=== PATIENT | female | born 1965 | race Caucasian/White ===

== ENCOUNTER 2017-04-01 20:22 | Inpatient (IN) | payer OTHER ==
[~2017-04-01] VITALS: Ht 167.6 cm; Wt 100.2 kg
[~2017-04-01 20:22] MED LIST: LYRICA25 MG PO; NEXIUM40 MG PO; ZOFRAN ODT4 MG
[2017-04-01] MEDS ORDERED: ONDANSETRON HCL INJ 2 MG/ML VIAL IV STA ×2 (20:43→22:11)
[2017-04-01] MEDS ORDERED: SODIUM CHLORIDE 0.9% 1000ML 1,000 ML IV STA (22:11)
[2017-04-01] MEDS ORDERED: PANTOPRAZOLE 40 MG 10ML VIAL IV STA (22:11)
[2017-04-01 22:24] LABS: BILIRUBIN,URINE NEGATIVE (NEGATIVE); CLARITY,URINE CLOUDY (CLEAR); COLOR,URINE YELLOW (YELLOW); KETONES,URINE TRACE (NEGATIVE); LEUKOCYTE ESTERASE ,URINE NEGATIVE (NEGATIVE); NITRITE,URINE NEGATIVE (NEGATIVE); PROTEIN,URINE DIPSTICK NEGATIVE (NEGATIVE); URINE UROBILINOGEN 0.2 mg/dL (0.2 - 1)
[2017-04-01 22:24] LABS: BASOPHILS # (AUTO) 0.1 (0.0-0.1); BASOPHILS % 0.3 % (0.0-1.0); EOSINOPHILS # (AUTO) 0.1 (0.0-0.4); EOSINOPHILS % 0.6 % (0.0-6.0); LYMPHOCYTES # (AUTO) 1.5 (1.0-3.2); LYMPHOCYTES % 9.9 % (18.0-39.1); MEAN CORPUSCULAR HGB CONC 33.3 g/dL (31-35); MONOCYTES # (AUTO) 1.2 (0.2-0.8); NEUTROPHILS # (AUTO) 11.9 (2.1-6.9); NEUTROPHILS % 80.8 % (38.7-80.0); PLATELET COUNT 324 x10e3/uL (140-360); RED CELL DISTRIBUTION WIDTH 13.1 % (11.7-14.4)
[2017-04-01 22:27] LABS: INR 0.95; PROTHROMBIN TIME 13.1 seconds (11.9-14.5)
[2017-04-01 22:29] LABS: PARTIAL THROMBOPLASTIN TIME 34.9 seconds (23.8-35.5)
[2017-04-01] MEDS ORDERED: PROMETHAZINE 12.5MG/ NACL 0.9% 12.5 MG/50 ML BAG IV ONE (22:30)
[2017-04-01 22:37] LABS: ALANINE AMINOTRANSFERASE 77 IU/L (0-55); ALBUMIN 4.2 g/dL (3.5-5.0); ALBUMIN/GLOBULIN RATIO 1.2 (0.8-2.0); ALKALINE PHOSPHATASE 58 IU/L (40-150); ANION GAP 14.6 mmol/L (8-16); BLOOD UREA NITROGEN 11 mg/dL (7-26); BUN/CREATININE RATIO 13 (6-25); CALCIUM 9.7 mg/dL (8.4-10.2); CARBON DIOXIDE 25 mmol/L (22-29); CHLORIDE 105 mmol/L (98-107); CREATININE, SERUM 0.84 mg/dL (0.57-1.11); EST GLOMERULAR FILTRATION RATE > 60 ML/MIN (60-); GLUCOSE 109 mg/dL (74-118); POTASSIUM 3.6 mmol/L (3.5-5.1); SODIUM 141 mmol/L (136-145)
[2017-04-01 22:39] LABS: BACTERIA,URINE MANY /HPF; EPITHELIAL CELLS,URINE MODERATE /LPF; RBC,URINE 0-5 /HPF (0-5)
[2017-04-01 22:45] LABS: AMYLASE 52 U/L (25-125); CREATINE KINASE 47 IU/L (29-168); LIPASE 13 U/L (8-78); MAGNESIUM 2.1 MG/DL (1.3-2.1)
[2017-04-01 22:51] LABS: TROPONIN I < 0.001 ng/mL (0-0.300)
[2017-04-02] MEDS ORDERED: D5.45%NS/KCL 20MEQ 1,000 ML IV ONE (01:00)
[2017-04-02] MEDS ORDERED: PIPER-TAZ 3.375 GM 50 ML IV SCH (01:00)
[2017-04-02] MEDS ORDERED: METRONIDAZOLE 500MG/NS 100ML 100 ML IV SCH (01:00)
--- NOTE | 2017-04-02 01:04 | Diagnostic Imaging Report ---
EXAM: CT ABDOMEN/PELVIS W DATE: 04/01/2017 10:30 PM INDICATION: Abdominal pain, nausea, vomiting COMPARISON: None TECHNIQUE: The abdomen and pelvis were scanned using a multidetector helical scanner. Coronal and sagittal reformations were obtained. Routine protocol performed. IV Contrast: 100 ml Isovue 370 FINDINGS: LOWER THORAX: No consolidation. LIVER/BILIARY: Hepatic steatosis with too small to characterize segment IVb hypodensity. No ductal dilatation. GALLBLADDER: Surgically absent SPLEEN: Unremarkable PANCREAS: Unremarkable ADRENALS: No nodules KIDNEYS: Symmetric perfusion. Mild bilateral pelviectasis without ureterectasis. No hydronephrosis. GI TRACT: Clips are noted at the GE junction. Small hiatal hernia. Diverticulosis with focal inflammatory changes and thickening of the proximal sigmoid colon. Normal appendix. VESSELS: Unremarkable PERITONEUM/RETROPERITONEUM: Mild pelvic free fluid. LYMPH NODES: There is mild bilateral pelvic adenopathy. For example a left external iliac node measures 1.9 cm, right external iliac node measures 2.3 cm, right common iliac node measures 1.4 cm.. Bilateral pelvic sidewall nodes measure 1.3-1.7 cm short axis. REPRODUCTIVE ORGANS/BLADDER: Status post hysterectomy with fullness of the cervix (if partial) or vaginal cuff. SOFT TISSUES: Unremarkable BONES: Degenerative changes, primarily at L5-S1. IMPRESSION: 1. Acute uncomplicated sigmoid diverticulitis. 2. Bilateral pelvic adenopathy of uncertain etiology. Differential includes metastatic disease. 3. Nonspecific fullness of the vaginal cuff/cervix (if partial hysterectomy). Correlate with history and physical exam given pelvic adenopathy. Signed by: Dr Candy Mckeon MD on 04/02/2017 1:00 AM
[2017-04-02] MEDS ORDERED: GABAPENTIN800 MG PO (01:08)
[2017-04-02] MEDS ORDERED: HYDROMORPHONE 1MG/1ML INJ IV PRN (01:45)
[2017-04-02] MEDS ORDERED: SODIUM CHLORIDE 0.9% 50ML 50 ML ONE (05:19)
[2017-04-02] MEDS ORDERED: IOPAMIDOL 370 MG/ML 200 ML INFUS..BTL INJ ONE (05:19)
[2017-04-02] MEDS: PROMETHAZINE HCL (IM) 25 MG/ML VIAL IV PRN (06:02)
[2017-04-02] MEDS: METRONIDAZOLE 500MG/NS 100ML 100 ML IV SCH ×3 (07:30→18:30)
[2017-04-02] MEDS: PIPER-TAZ 3.375 GM 50 ML IV SCH ×3 (08:30→20:10)
[2017-04-02] MEDS: PANTOPRAZOLE 40 MG 10ML VIAL IV SCH ×2 (09:00→18:07)
[2017-04-02] MEDS: SODIUM CHLORIDE 0.9% 1000ML 1,000 ML IV SCH ×3 (10:52→20:05)
[2017-04-02] MEDS: ONDANSETRON HCL INJ 2 MG/ML VIAL IV PRN ×3 (11:39→21:29)
[2017-04-02] MEDS: HYDROMORPHONE 2MG/ML INJ IV PRN ×2 (18:11→23:30)
[2017-04-03] MEDS: METRONIDAZOLE 500MG/NS 100ML 100 ML IV SCH ×4 (00:19→18:29)
[2017-04-03] MEDS ORDERED: SODIUM CHLORIDE 0.9% 50ML 50 ML ONE ×5 (01:14→23:48)
[2017-04-03] MEDS: PIPER-TAZ 3.375 GM 50 ML IV SCH ×5 (01:14→17:45)
[2017-04-03] MEDS: PROMETHAZINE HCL (IM) 25 MG/ML VIAL IV PRN ×4 (01:14→20:00)
[2017-04-03] MEDS ORDERED: DIPHENHYDRAMINE HCL INJ 1 ML ONE (01:52)
[2017-04-03] MEDS: SODIUM CHLORIDE 0.9% 1000ML 1,000 ML IV SCH ×4 (01:57→23:45)
[2017-04-03] MEDS ORDERED: DIPHENHYDRAMINE HCL INJ 50 MG/ML VIAL IV STA (01:58)
[2017-04-03] MEDS: ONDANSETRON HCL INJ 2 MG/ML VIAL IV PRN ×4 (06:03→22:19)
[2017-04-03] MEDS ORDERED: SODIUM CHLORIDE 0.9% 500ML 500 ML ONE (06:04)
[2017-04-03 06:23] LABS: BASOPHILS % 0.5 % (0.0-1.0); EOSINOPHILS # (AUTO) 0.1 (0.0-0.4); EOSINOPHILS % 1.6 % (0.0-6.0); HEMATOCRIT 38.1 % (34.2-44.1); HEMOGLOBIN 12.3 g/dL (12.0-16.0); LYMPHOCYTES # (AUTO) 1.2 (1.0-3.2); LYMPHOCYTES % 14.5 % (18.0-39.1); MEAN CORPUSCULAR HEMOGLOBIN 29.6 pg (28-32); MEAN CORPUSCULAR HGB CONC 32.3 g/dL (31-35); MEAN CORPUSCULAR VOLUME 91.8 fL (81-99); MONOCYTES # (AUTO) 0.7 (0.2-0.8); MONOCYTES % 8.5 % (4.4-11.3); NEUTROPHILS # (AUTO) 6.2 (2.1-6.9); NEUTROPHILS % 74.7 % (38.7-80.0); PLATELET COUNT 223 x10e3/uL (140-360); RED BLOOD COUNT 4.15 x10e6/uL (3.6-5.1); RED CELL DISTRIBUTION WIDTH 12.9 % (11.7-14.4)
--- NOTE | 2017-04-03 06:28 | History and Physical ---
REASON FOR ADMISSION 1. Diverticulitis. 2. Pelvic lymphadenopathy. 3. Leukocytosis. HISTORY OF PRESENT ILLNESS: Patient is a lady with a history of dysautonomia, who presented with a 2-day complaint of worsening left lower quadrant abdominal pain where in the emergency room she was noticed to have a white count of 14,000, as well as CT scan showing diverticulitis with significant amount of pelvic lymphadenopathy. PAST MEDICAL HISTORY: Significant for dysautonomia. MEDICATIONS: See MAR. ALLERGIES: SEE MAR. SOCIAL: Nonsmoker and nondrinker. Lives at home with her . FAMILY HISTORY: Hypertension. PHYSICAL EXAMINATION VITALS: 98.6, pulse 82, blood pressure 146/78, sats 98% on room air. GENERAL: No apparent distress. Lying in bed comfortably. NECK: Supple. CARDIOVASCULAR: Regular rate and rhythm. LUNGS: Clear to auscultation bilaterally. ABDOMEN: Soft. She has some slight tenderness over the left lower quadrant area, but no peritoneal signs. EXTREMITIES: No clubbing or cyanosis. NEUROLOGICAL: Nonfocal. ASSESSMENT AND PLAN 1. Diverticulitis: Continue with antibiotics and consult gastroenterology. 2. Pelvic lymphadenopathy: Unsure of the etiology at this time. May be related to the gastroenterology issues at hand. 3. Leukocytosis: Continue to monitor. 4. Dysautonomia: Continue to monitor. 5. Abdominal pain: Continue with current pain control. Please see hospital chart for full details. Job#: [id number] [place]
[2017-04-03 06:37] LABS: ALANINE AMINOTRANSFERASE 47 IU/L (0-55); ALBUMIN 3.3 g/dL (3.5-5.0); ALBUMIN/GLOBULIN RATIO 1.2 (0.8-2.0); ALKALINE PHOSPHATASE 40 IU/L (40-150); ANION GAP 11.4 mmol/L (8-16); BLOOD UREA NITROGEN 10 mg/dL (7-26); BUN/CREATININE RATIO 12 (6-25); CALCIUM 8.4 mg/dL (8.4-10.2); CARBON DIOXIDE 24 mmol/L (22-29); CHLORIDE 107 mmol/L (98-107); CREATININE, SERUM 0.85 mg/dL (0.57-1.11); EST GLOMERULAR FILTRATION RATE > 60 ML/MIN (60-); GLUCOSE 87 mg/dL (74-118); POTASSIUM 3.4 mmol/L (3.5-5.1); SODIUM 139 mmol/L (136-145)
[2017-04-03] MEDS ORDERED: DICYCLOMINE HCL 20 MG TAB PO PRN (09:15)
--- NOTE | 2017-04-03 10:09 | Consultation ---
DATE OF CONSULTATION: GASTROENTEROLOGY CONSULTATION REFERRING PHYSICIAN: Dr. Rosa REASON FOR CONSULTATION: Diverticulitis and pelvic lymphadenopathy. HISTORY OF PRESENT ILLNESS: Ms. Meyers is a very pleasant 52-year-old woman with below history. She reports that she was feeling unwell for a little over a week. She had queasiness and also altered bowel habits. The bowels appeared to be somewhat softer than normal but not diarrhea. She had no fevers, chills or night sweats and has not had any weight loss. She reports her last colonoscopy was approximately 4 or 5 years ago at which time she did have diverticulosis as well as polyps. It was performed by Dr. Cruz. She has never had a bout of acute diverticulitis previously. Over the past week, she developed lower abdominal pain, which was worse on the left than on the right side. It is nonradiating, crampy and of moderate severity. It was associated with nausea and vomiting as well as leukocytosis. She denies recent antibiotic use as an outpatient. Her last well woman exam was also approximately 4 to 5 years ago. She believes she had a hysterectomy, leaving her ovaries in place but taking the entire cervix. PAST MEDICAL HISTORY: Dysautonomia, diverticulosis, colon polyps and anxiety. PAST SURGICAL HISTORY: On November 21, 2012, she had a diagnostic laparoscopy and laparoscopic repair of hiatal hernia with fundoplication. MEDICATION AND ALLERGIES: Reviewed. Please see MAR, medication reconciliation form. SOCIAL HISTORY: No alcohol that is significant. No tobacco. No illicit substance. FAMILY HISTORY: Negative for colonic malignancy. REVIEW OF SYSTEMS: A 12-system review is positive for that mentioned in HPI. Otherwise, unremarkable. PHYSICAL EXAMINATION GENERAL: Pleasant, alert, oriented, in no acute distress. HEENT: Pupils are equal, round and reactive to light. NECK: Supple. No lymphadenopathy. LUNGS: Clear. CARDIOVASCULAR: S1, S2. ABDOMEN: Soft. She is tender in the left lower quadrant more so than the suprapubic or right lower quadrant. There is no rebound, guarding or mass. EXTREMITIES: No clubbing, cyanosis or edema. PSYCH: Calm, cooperative. NEUROLOGIC: Nonfocal. HEM-ONC: No bruising or adenopathy. The electronic health record was reviewed for laboratory and radiologic studies as well as history. ASSESSMENT AND PLAN 1. Acute diverticulitis, sigmoid, uncomplicated. Agree with 14 days of antibiotics, Bentyl, clear liquid diet when no longer having nausea and vomiting. In the meantime, supportive care with IV fluids and Zofran. Will give her Bentyl. 2. Pelvic lymphadenopathy, unclear source. She will need a followup gynecologic exam as well as colonoscopy in roughly 4 weeks. Thank you very much for asking me to see Ms. Meyers. Any questions or concerns, please do not hesitate to contact me. Will follow with you. Job#: [id number]
[2017-04-03] MEDS: PROMETHAZINE 12.5MG/ NACL 0.9% 12.5 MG/50 ML BAG IV PRN (23:45)
[2017-04-04] VITALS (7 sets, daily range): BP systolic 96–129; BP diastolic 51–60
[2017-04-04] MEDS: METRONIDAZOLE 500MG/NS 100ML 100 ML IV SCH ×5 (06:00→23:51)
[2017-04-04] MEDS: PIPER-TAZ 3.375 GM 50 ML IV SCH ×4 (06:00→20:00)
[2017-04-04] MEDS: PANTOPRAZOLE 40 MG 10ML VIAL IV SCH (08:36)
[2017-04-04] MEDS: SODIUM CHLORIDE 0.9% 1000ML 1,000 ML IV SCH ×3 (09:31→23:53)
[2017-04-04] MEDS: ONDANSETRON HCL INJ 2 MG/ML VIAL IV PRN ×3 (12:40→20:49)
[2017-04-04] MEDS: PROMETHAZINE 12.5MG/ NACL 0.9% 12.5 MG/50 ML BAG IV PRN (22:32)
[2017-04-05] VITALS (10 sets, daily range): BP systolic 97–126; BP diastolic 52–63
[2017-04-05] MEDS: PIPER-TAZ 3.375 GM 50 ML IV SCH ×3 (02:00→20:19)
[2017-04-05] MEDS: METRONIDAZOLE 500MG/NS 100ML 100 ML IV SCH (05:44)
[2017-04-05] MEDS: PANTOPRAZOLE 40 MG 10ML VIAL IV SCH (08:44)
[2017-04-05] MEDS: GABAPENTIN 400 MG CAP PO SCH ×3 (08:44→20:19)
[2017-04-05] MEDS: KETOROLAC TROMETHAMINE 30 MG/ML VIAL IV PRN ×2 (08:44→16:53)
[2017-04-05] MEDS ORDERED: NON-FORMULARY MEDICATION (Gabapentin 800 MG) PO SCH (09:00)
[2017-04-05] MEDS: SODIUM CHLORIDE 0.9% 1000ML 1,000 ML IV SCH ×2 (09:57→20:19)
[2017-04-06] VITALS: BP 105/57
[2017-04-06] MEDS: PIPER-TAZ 3.375 GM 50 ML IV SCH ×3 (02:39→21:00)
[2017-04-06 04:00] VITALS: BP 103/53
[2017-04-06] MEDS: SODIUM CHLORIDE 0.9% 1000ML 1,000 ML IV SCH ×3 (06:05→14:39)
[2017-04-06] MEDS: KETOROLAC TROMETHAMINE 30 MG/ML VIAL IV PRN (06:06)
[2017-04-06] MEDS: PANTOPRAZOLE 40 MG 10ML VIAL IV SCH (08:14)
[2017-04-06] MEDS: GABAPENTIN 400 MG CAP PO SCH ×3 (08:14→21:00)
[2017-04-06 08:34] VITALS: BP 124/59
[2017-04-06 10:15] VITALS: BP 124/59
[2017-04-06 16:00] VITALS: BP 110/53
[2017-04-06 20:00] VITALS: BP 103/53
[2017-04-07] VITALS: BP 136/65
[2017-04-07] MEDS: SODIUM CHLORIDE 0.9% 1000ML 1,000 ML IV SCH ×2 (00:21→08:46)
[2017-04-07] MEDS: PIPER-TAZ 3.375 GM 50 ML IV SCH ×2 (02:52→14:01)
[2017-04-07 04:00] VITALS: BP 106/52
[2017-04-07 08:06] VITALS: BP 114/57
[2017-04-07] MEDS: GABAPENTIN 400 MG CAP PO SCH ×2 (08:45→14:01)
[2017-04-07] MEDS: PANTOPRAZOLE 40 MG 10ML VIAL IV SCH (08:45)
[2017-04-07] MEDS ORDERED: LEVAQUIN500 MG PO (09:17)
[2017-04-07] MEDS ORDERED: FLAGYL500 MG PO (09:19)
[2017-04-07 09:34] VITALS: BP 114/57
[2017-04-07] MEDS ORDERED: ZOFRAN ODT4 MG PO (09:56)
[2017-04-07] MEDS ORDERED: ALINIA500 MG PO (09:57)
[2017-04-07 13:41] VITALS: BP 110/56
== END 2017-04-07 15:45 | disposition home or self-care (01) | DRG 392 ==
LOC: ER 20:22 → ERHOLD 04-02 02:18 → MED/SURG 04-03 22:25
PROVIDERS: ADMIT Internal Medicine; ATTEND Internal Medicine
DX: K57.92 Diverticulitis of intestine, part unspecified, without perforation or abscess without bleeding (principal); E86.0 Dehydration; G90.1 Familial dysautonomia [Riley-Day]; R59.1 Generalized enlarged lymph nodes
CPT/HCPCS: 36415; 74177; 80053; 81001; 82150; 82550; 82553; 83690; 83735; 84484; 85025; 85610; 85730; 96360; 96365; 96367; 96375; 96376; 99284; J1200; J1885; J2405; J2543; J2550; J7030; J7040; Q9967

== ENCOUNTER 2017-08-03 08:49 | Emergency (ER) | payer OTHER ==
[~2017-08-03] VITALS: Ht 167.6 cm; Wt 95.3 kg
[~2017-08-03 08:49] MED LIST changes: +ALINIA500 MG PO; +FLAGYL500 MG PO; +GABAPENTIN800 MG PO; +LEVAQUIN500 MG PO; +ZOFRAN ODT4 MG PO
--- OUTSIDE RECORDS SUMMARY | 2017-08-03 08:52 | XMS REPORT ---
Author Author [facility] Address Unknown Phone Unavailable Care Team Providers Care Plate Worker Name Role Phone MADDIE BUSH Unavailable Unavailable Problems This patient has no known problems. Allergies, Adverse Reactions, Alerts This patient has no known allergies or adverse reactions. Medications This patient has no known medications. Results Test Description Test Time Test Comments Text Results Atomic Results Result Comments CT ABDOMEN/PELVIS W [place] [address] Patient Name: SHEILA OLIVERA MR #: [id number] : 1965 Age/Sex: 52/F Req #: [id number] Adm Physician: Ordered by: MADDIE BUSH MD Report #: [id number] Location: ER Room/Bed: Procedure: [id number] CT/CT ABDOMEN/PELVIS W Exam Date: 04/01/17 Exam Time: 2348 REPORT STATUS: Signed EXAM: CT ABDOMEN/ PELVIS W DATE: 04/01/2017 10:30 PM INDICATION: Abdominal pain, nausea, vomiting COMPARISON: None TECHNIQUE: The abdomen and pelvis were scanned using a multidetector helical scanner. Coronal and sagittal reformations were obtained. Routine protocol performed. IV Contrast: 100 ml Isovue 370 FINDINGS: LOWER THORAX: No consolidation. LIVER/BILIARY: Hepatic steatosis with too small to characterize segment IVb hypodensity. No ductal dilatation. GALLBLADDER: Surgically absent SPLEEN: Unremarkable PANCREAS: Unremarkable ADRENALS: No nodules KIDNEYS: Symmetric perfusion. Mild bilateral pelviectasis without ureterectasis. No hydronephrosis. GI TRACT: Clips are noted at the GE junction. Small hiatal hernia. Diverticulosis with focal inflammatory changes and thickening of the proximal sigmoid colon. Normal appendix. VESSELS: Unremarkable PERITONEUM/RETROPERITONEUM: Mild pelvic free fluid. LYMPH NODES: There is mild bilateral pelvic adenopathy. For example a left external iliac node measures 1.9 cm, right external iliac node measures 2.3 cm, right common iliac node measures 1.4 cm.. Bilateral pelvic sidewall nodes measure 1.3-1.7 cm short axis. REPRODUCTIVE ORGANS/BLADDER: Status post hysterectomy with fullness of the cervix (if partial) or vaginal cuff. SOFT TISSUES: Unremarkable BONES: Degenerative changes, primarily at L5-S1. IMPRESSION : 1. Acute uncomplicated sigmoid diverticulitis. 2. Bilateral pelvic adenopathy of uncertain etiology. Differential includes metastatic disease. 3. Nonspecific fullness of the vaginal cuff/cervix (if partial hysterectomy). Correlate with history and physical exam given pelvic adenopathy. Signed by: Dr Kobi Mckeon MD on 04/02/2017 1:00 AM Dictated By: KOBI MCKEON MD Transcribed By: OVIDIO on 04/02/1799 COPY TO: MADDIE BUSH MD
--- OUTSIDE RECORDS SUMMARY | 2017-08-03 08:52 | XMS REPORT | Continuity of Care Document ---
Author Author [facility] Organization [facility] Address [address] [place] [address] Phone Unavailable Care Team Providers Care Master Dyer Name Role Phone DEEPA ARMAS MD PCP Insurance Providers Guarantor Mecca Meyers Address [address] [place] [address] Email [email or web address] Payer [facility] Policy Number [id number] Subscriber's Name Mecca Meyers Relationship 18 Self / Same As Patient Group Number [id number] Group Name [employer] Effective Date 12 Advance Directives Directive Response Recorded Date/Time Does the patient have an advance directive? No 04/04/17 12:21am If yes, is advance directive on file with [facility]? No 11/21/12 3:12pm If not on file with [facility] will patient provide a copy? No 11/21/12 3:12pm Do you have a Directive to Physician? No 04/01/17 10:08pm Do you have a Medical Power of Editor [employer]? No 04/01/17 10:08pm Do you have an out of hospital Do Not Resuscitate Order? No 04/01/17 10:08pm Do you have any special needs we should be aware of? No 04/01/17 10:08pm Do you have a support person here with you today? Yes 04/01/17 10:08pm Did patient receive Notice of Privacy Practices? Yes 04/01/17 10:08pm Did patient receive patient rights and responsibilities? Yes 04/01/17 10:08pm Problems Medical Problem Onset Date Status Dehydration Unknown Diverticulitis Unknown Pelvic lymphadenopathy Unknown Vomiting and diarrhea Unknown Medications Current Home Medications Medication Dose Units Route Directions Days Qty Instructions Start Date Gabapentin 800 Mg Tablet 800 Mg Oral Three Times A Day Levofloxacin (Levaquin) 500 Mg Tablet 500 Mg Oral Daily 7 Days Metronidazole (Flagyl) 500 Mg Tablet 500 Mg Oral Twice A Day 7 Days Nitazoxanide (Alinia) 500 Mg Tablet 500 Mg Oral Every 12 Hours 7 Days Ondansetron (Zofran Odt) 4 Mg Tab.rapdis 4 Mg Oral Every 6 Hours as needed for Nausea And Vomiting Past Home Medications Medication Directions Ordered Status Esomeprazole Magnesium (Nexium) 40 Mg Capsule.dr, 40 Mg Oral Twice A Day Discontinued Social History Social History Problem Response Recorded Date/Time Onset Date Status Hx Psychiatric Problems No 04/04/2017 12:21am Not Applicable Not Applicable Hx Eating Disorder No 04/04/2017 12:21am Not Applicable Not Applicable Hx Substance Use Disorder No 04/04/2017 12:21am Not Applicable Not Applicable Hx Depression No 04/04/2017 12:21am Not Applicable Not Applicable Hx Alcohol Use No 04/04/2017 12:21am Not Applicable Not Applicable Hx Substance Use Treatment No 04/04/2017 12:21am Not Applicable Not Applicable Hx Physical Abuse No 04/04/2017 12:21am Not Applicable Not Applicable Smoking Status Start Date Stop Date Never Smoker Hospital Discharge Instructions No hospital discharge instruction information available. Plan of Care Discharge Date 04/07/17 3:45pm Disposition HOME, SELF-CARE Instructions/Education Provided Diverticulitis Prescriptions See Medication Section Additional Instructions/Education GI SOFT DIET ACTIVITY TOLERATED SCHEDULE FOLLOW UP WITH DARIEL FINN OUTPATIENT IN 1-2 WEEKS. TEL: PRESCRIPTIONS ATTACHED. IF YOU CAN GET THE ILINEA, DO NOT TAKE THE FLAGYL. IF UPON TAKING THE FLAGYL AND YOU HAVE NAUSEA/VOMITING, YOU CAN STOP AND TAKE ONLY THE LEVAQUID. SCHEDULE FOLLOW UP APPOINTMENT WITH DR. WEEMS. TEL: [phone] Functional Status Query Response Date Recorded Assistive Devices None April 04, 2017 12:35am Ambulation Ability Independent April 04, 2017 12:35am Toileting Ability Independent April 04, 2017 6:22pm Allergies, Adverse Reactions, Alerts Allergen Type Severity Reaction Status Last Updated venlafaxine HCl Allergy Mild HIVES, SWELLING Active 11/16/12 Latex Allergy Mild SWELLING, REDNESS Active 11/16/12 Immunizations No immunization information available. Vital Signs Acute Vital Signs Vital Response Date/Time Temperature (Fahrenheit) 96.9 degrees F (97.6 - 99.5) 04/07/2017 1:41pm Pulse Pulse Rate (adult) 59 bpm (60 - 90) 04/07/2017 1:41pm Respiratory Rate 18 bpm (12 - 24) 04/07/2017 1:41pm Blood Pressure 110/56 mm Hg 04/07/2017 1:41pm Height 5 ft 6 in 04/01/2017 8:36pm Weight 221 lb 04/04/2017 12:21am Body Mass Index 35.7 kg/m^2 04/04/2017 12:21am Results Laboratory Results Test Name Result Units Flags Reference Collection Date/Time Result Date/ Time Comments White Blood Count 8.33 x10e3/uL 4.8-10.8 04/03/2017 5:50am 04/03/2017 6 :30am Red Blood Count 4.15 x10e6/uL 3.6-5.1 04/03/2017 5:50am 04/03/2017 6: 30am Hemoglobin 12.3 g/dL 12.0-16.0 04/03/2017 5:50am 04/03/2017 6:30am Hematocrit 38.1 % 34.2-44.1 04/03/2017 5:50am 04/03/2017 6:30am Mean Corpuscular Volume 91.8 fL 81-99 04/03/2017 5:50am 04/03/2017 6: 30am Mean Corpuscular Hemoglobin 29.6 pg 28-32 04/03/2017 5:50am 04/03/2017 6:30am Mean Corpuscular Hemoglobin Concent 32.3 g/dL 31-35 04/03/2017 5:50am 04/03/2017 6:30am Red Cell Distribution Width 12.9 % 11.7-14.4 04/03/2017 5:50am 2017 6:30am Platelet Count 223 x10e3/uL 140-360 04/03/2017 5:50am 04/03/2017 6: 30am Neutrophils (%) (Auto) 74.7 % 38.7-80.0 04/03/2017 5:50am 04/03/2017 6: 30am Lymphocytes (%) (Auto) 14.5 % L 18.0-39.1 04/03/2017 5:50am 04/03/2017 6 :30am Monocytes (%) (Auto) 8.5 % 4.4-11.3 04/03/2017 5:50am 04/03/2017 6: 30am Eosinophils (%) (Auto) 1.6 % 0.0-6.0 04/03/2017 5:50am 04/03/2017 6: 30am Basophils (%) (Auto) 0.5 % 0.0-1.0 04/03/2017 5:50am 04/03/2017 6:30am IM GRANULOCYTES % 0.2 % 0.0-1.0 04/03/2017 5:50am 04/03/2017 6:30am Neutrophils # (Auto) 6.2 2.1-6.9 04/03/2017 5:50am 04/03/2017 6:30am Lymphocytes # (Auto) 1.2 1.0-3.2 04/03/2017 5:50am 04/03/2017 6:30am Monocytes # (Auto) 0.7 0.2-0.8 04/03/2017 5:50am 04/03/2017 6:30am Eosinophils # (Auto) 0.1 0.0-0.4 04/03/2017 5:50am 04/03/2017 6:30am Basophils # (Auto) 0.0 0.0-0.1 04/03/2017 5:50am 04/03/2017 6:30am Absolute Immature Granulocyte (auto 0.02 x10e3/uL 0-0.1 04/03/2017 5: 50am 04/03/2017 6:30am Prothrombin Time 13.1 seconds 11.9-14.5 04/01/2017 8:44pm 04/01/2017 10 :32pm Prothromb Time International Ratio 0.95 04/01/2017 8:44pm 2017 10:32pm Oral Anticoagulant Therapy INR Values: 1. Low Intensity Therapy 1.5 - 2.0 2. Moderate Intensity Therapy 2.0 - 3.0 3. High Intensity Therapy(1) 2.5 - 3.5 4. High Intensity Therapy(2) 3.0 - 4.0 5. Panic Value INR > 5.0 Activated Partial Thromboplast Time 34.9 seconds 23.8-35.5 04/01/2017 8: 44pm 04/01/2017 10:32pm Urine Color YELLOW YELLOW 04/01/2017 10:04/01/2017 10:32pm Urine Clarity CLOUDY H CLEAR 04/01/2017 10:04/01/2017 10:32pm Urine Specific [place] 1.015 1.010-1.025 04/01/2017 10:2017 10:32pm Urine pH 7 5 - 7 04/01/2017 10:04/01/2017 10:32pm Urine Leukocyte Esterase NEGATIVE NEGATIVE 04/01/2017 10:2017 10:32pm Urine Nitrite NEGATIVE NEGATIVE 04/01/2017 10:04/01/2017 10: 32pm Urine Protein NEGATIVE NEGATIVE 04/01/2017 10:04/01/2017 10: 32pm Urine Glucose (UA) NEGATIVE NEGATIVE 04/01/2017 10:04/01/2017 10 :32pm Urine Ketones TRACE H NEGATIVE 04/01/2017 10:04/01/2017 10:32pm Urine Urobilinogen 0.2 mg/dL 0.2 - 1 04/01/2017 10:04/01/2017 10: 32pm Urine Bilirubin NEGATIVE NEGATIVE 04/01/2017 10:04/01/2017 10: 32pm Urine Blood NEGATIVE NEGATIVE 04/01/2017 10:04/01/2017 10:32pm Urine WBC 6-10 /HPF H 0-5 04/01/2017 10:1704/01/2017 10:39pm Urine RBC 0-5 /HPF 0-5 04/01/2017 10:17pm 04/01/2017 10:39pm Urine Bacteria MANY /HPF H NONE 04/01/2017 10:17pm 04/01/2017 10:39pm Urine Epithelial Cells MODERATE /LPF NONE 04/01/2017 10:17pm 2017 10:39pm Sodium Level 139 mmol/L 136-145 04/03/2017 5:50am 04/03/2017 6:40am Potassium Level 3.4 mmol/L L 3.5-5.1 04/03/2017 5:50am 04/03/2017 6: 40am Chloride Level 107 mmol/L 98-107 04/03/2017 5:50am 04/03/2017 6:40am Carbon Dioxide Level 24 mmol/L -04/03/2017 5:50am 04/03/2017 6: 40am Anion Gap 11.4 mmol/L 8-04/03/2017 5:50am 04/03/2017 6:40am Blood Urea Nitrogen 10 mg/dL -04/03/2017 5:50am 04/03/2017 6:40am Creatinine 0.85 mg/dL 0.57-1.11 04/03/2017 5:50am 04/03/2017 6:40am BUN/Creatinine Ratio 12 08-2804/03/2017 5:50am 04/03/2017 6:40am Estimat Glomerular Filtration Rate > 60 ML/MIN 6004/03/2017 5:50am 6:40am Ranges were taken from the National Kidney Disease Education Program and the National Kid[employer] Foundation literature. Reference ranges: 60 or greater: Normal 16-59 (for 3 consecutive months): Chronic kidney disease 15 or less: Kidney failure Glucose Level 87 mg/dL 74-118 04/03/2017 5:50am 04/03/2017 6:40am Calcium Level 8.4 mg/dL 8.4-10.2 04/03/2017 5:50am 04/03/2017 6:40am Magnesium Level 2.1 MG/DL 1.3-2.1 04/01/2017 8:44pm 04/01/2017 10:50pm Total Bilirubin 0.6 mg/dL 0.2-1.2 04/03/2017 5:50am 04/03/2017 6:40am Aspartate Amino Transf (AST/SGOT) 22 IU/L 5-34 04/03/2017 5:50am 2017 6:40am Alanine Aminotransferase (ALT/SGPT) 47 IU/L 0-55 04/03/2017 5:50am 6:40am Total Protein 6.0 g/dL # L 6.5-8.1 04/03/2017 5:50am 04/03/2017 6:40am Albumin 3.3 g/dL # L 3.5-5.0 04/03/2017 5:50am 04/03/2017 6:40am Globulin 2.7 g/dL 2.3-3.5 04/03/2017 5:50am 04/03/2017 6:40am Albumin/Globulin Ratio 1.2 0.8-2.0 04/03/2017 5:50am 04/03/2017 6: 40am Alkaline Phosphatase 40 IU/L 40-150 04/03/2017 5:50am 04/03/2017 6: 40am Creatine Kinase 47 IU/L 29-168 04/01/2017 8:44pm 04/01/2017 10:50pm Creatine Kinase MB 0.60 ng/mL 0.00-5.00 04/01/2017 8:44pm 04/01/2017 11 :01pm Troponin I < 0.001 ng/mL 0-0.300 04/01/2017 8:44pm 04/01/2017 11:01pm Amylase Level 52 U/L 25-125 04/01/2017 8:44pm 04/01/2017 10:50pm Lipase 13 U/L 8-78 04/01/2017 8:44pm 04/01/2017 10:50pm Procedures Procedure Status Date Provider(s) Computed tomography of abdomen and pelvis with contrast Active 04/01/17 MADDIE BUSH MD Encounters Encounter Location Arrival/Admit Date Discharge/Depart Date Attending Provider Discharged Inpatient [facility] 04/02/17 2:18am 04/07/17 3:45pm DEEPA ARMAS MD
[2017-08-03] MEDS ORDERED: MACROBID 100 M100 MG PO (09:07)
[2017-08-03] MEDS ORDERED: PANTOPRAZOLE SO40 MG PO (09:07)
[2017-08-03] MEDS ORDERED: ATENOLOL50 MG PO (09:07)
[2017-08-03] MEDS ORDERED: KETOROLAC TROMETHAMINE 30 MG/ML VIAL IV STA (09:16)
[2017-08-03 09:29] LABS: BASOPHILS % 0.4 % (0.0-1.0); EOSINOPHILS # (AUTO) 0.2 (0.0-0.4); EOSINOPHILS % 2.8 % (0.0-6.0); HEMATOCRIT 40.3 % (34.2-44.1); HEMOGLOBIN 13.7 g/dL (12.0-16.0); LYMPHOCYTES # (AUTO) 1.7 (1.0-3.2); LYMPHOCYTES % 21.1 % (18.0-39.1); MEAN CORPUSCULAR HEMOGLOBIN 30.1 pg (28-32); MEAN CORPUSCULAR VOLUME 88.6 fL (81-99); MONOCYTES # (AUTO) 0.5 (0.2-0.8); MONOCYTES % 6.5 % (4.4-11.3); NEUTROPHILS # (AUTO) 5.6 (2.1-6.9); PLATELET COUNT 289 x10e3/uL (140-360); RED BLOOD COUNT 4.55 x10e6/uL (3.6-5.1); RED CELL DISTRIBUTION WIDTH 12.8 % (11.7-14.4)
[2017-08-03] MEDS ORDERED: METOCLOPRAMIDE HCL 10 MG/2ML VIAL IV ONE (09:30)
[2017-08-03] MEDS ORDERED: SODIUM CHLORIDE 0.9% 1000ML 1,000 ML IV ONE (09:30)
[2017-08-03 09:40] LABS: ALANINE AMINOTRANSFERASE 57 IU/L (0-55); ALBUMIN/GLOBULIN RATIO 1.4 (0.8-2.0); ALKALINE PHOSPHATASE 60 IU/L (40-150); ANION GAP 11.6 mmol/L (8-16); BLOOD UREA NITROGEN 15 mg/dL (7-26); BUN/CREATININE RATIO 19 (6-25); CARBON DIOXIDE 26 mmol/L (22-29); CHLORIDE 107 mmol/L (98-107); CREATININE, SERUM 0.79 mg/dL (0.57-1.11); EST GLOMERULAR FILTRATION RATE > 60 ML/MIN (60-); GLUCOSE 116 mg/dL (74-118); POTASSIUM 3.6 mmol/L (3.5-5.1); SODIUM 141 mmol/L (136-145)
[2017-08-03 10:09] LABS: BILIRUBIN,URINE NEGATIVE (NEGATIVE); CLARITY,URINE CLEAR (CLEAR); COLOR,URINE YELLOW (YELLOW); KETONES,URINE NEGATIVE (NEGATIVE); NITRITE,URINE NEGATIVE (NEGATIVE); PROTEIN,URINE DIPSTICK NEGATIVE (NEGATIVE); URINE UROBILINOGEN 0.2 mg/dL (0.2 - 1)
[2017-08-03 10:10] LABS: LEUKOCYTE ESTERASE ,URINE TRACE (NEGATIVE)
[2017-08-03 10:19] LABS: BACTERIA,URINE RARE /HPF; EPITHELIAL CELLS,URINE MODERATE /LPF; WBC,URINE (MAN) 0-5 /HPF (0-5)
--- NOTE | 2017-08-03 11:22 | Diagnostic Imaging Report ---
Examination: CT BRAIN WITHOUT CONTRAST History:Headache. Left sided face pain radiating to the right; nausea. Comparison studies:None Technique: Axial images were obtained from the skull base to the vertex. Coronal and sagittal images reconstructed from the axial data. Intravenous contrast: None Findings: Scalp: No abnormalities. Bones: No fractures, blastic or lytic lesions. Brain sulci: Appropriate for age. Ventricles: Normal in size and configuration. No hydrocephalus. Extra-axial space: No abnormalities. Parenchyma: No masses, hemorrhage, or acute or chronic cortical based vascular insults. Sellar/suprasellar region: No abnormalities. Craniocervical junction: Patent foramen magnum. No Chiari one malformation. Incidental findings: None. Impression: No intracranial abnormalities. Signed by: Dr. Opal Mccartney M.D. on 08/03/2017 11:18 AM
[2017-08-03] MEDS ORDERED: METHYLPREDNISOLONE SOD SUCC 125 MG/2ML VIAL IV SCH (13:00)
== END 2017-08-03 13:36 | disposition home or self-care (01) ==
LOC: ER 08:49
DX: G43.109 Migraine with aura, not intractable, without status migrainosus (principal); I10 Essential (primary) hypertension; M79.7 Fibromyalgia; K21.9 Gastro-esophageal reflux disease without esophagitis; F41.9 Anxiety disorder, unspecified
CPT/HCPCS: 36415; 70450; 80053; 81001; 85025; 96374; 96375; 99284; J1885; J2765; J2930; J7030

== ENCOUNTER 2017-08-07 22:01 | Emergency (ER) | payer OTHER ==
[~2017-08-07] VITALS: Ht 167.6 cm; Wt 96.6 kg
[~2017-08-07 22:01] MED LIST changes: +ATENOLOL50 MG PO; +MACROBID 100 M100 MG PO; +PANTOPRAZOLE SO40 MG PO
--- OUTSIDE RECORDS SUMMARY | 2017-08-07 22:04 | XMS REPORT | Continuity of Care Document ---
Author Author [facility] Organization [facility] Address [address] [place] [address] Phone Unavailable Care Team Providers Care Vocational Training Teacher Name Role Phone DEEPA ARMAS MD PCP Insurance Providers Guarantor Mecca Meyers Address [address] [place] [address] Email [email or web address] Payer Count Includes [facility] Hmo Policy Number [id number] Subscriber's Name Mecca Meyers Relationship 18 Self / Same As Patient Group Number [id number] Group Name [employer] Effective Date 12 Advance Directives Directive Response Recorded Date/Time Does the patient have an advance directive? No 04/04/17 12:21am If yes, is advance directive on file with [facility]? No 11/21/12 3:12pm If not on file with [facility] will patient provide a copy? No 11/21/12 3:12pm Do you have a Directive to Physician? No 08/03/17 9:28am Do you have a Medical Power of Kosher Sealer? No 08/03/17 9:28am Do you have an out of hospital Do Not Resuscitate Order? No 08/03/17 9:28am Do you have any special needs we should be aware of? No 08/03/17 9:28am Do you have a support person here with you today? No 08/03/17 9:28am Did patient receive Notice of Privacy Practices? Yes 08/03/17 9:28am Did patient receive patient rights and responsibilities? Yes 08/03/17 9:28am Problems Medical Problem Onset Date Status Dehydration Unknown Diverticulitis Unknown Pelvic lymphadenopathy Unknown Vomiting and diarrhea Unknown Medications Current Home Medications Medication Dose Units Route Directions Days Qty Instructions Start Date Atenolol 50 Mg Tablet 25 Mg Oral Daily Gabapentin 800 Mg Tablet 800 Mg Oral Three Times A Day Nitrofurantoin Monohyd/M-Cryst (Macrobid 100 Mg Capsule) 100 Mg Capsule 100 Mg Oral Twice A Day Pantoprazole Sodium (Protonix) 40 Mg Tablet.dr 40 Mg Oral Daily Past Home Medications Medication Directions Ordered Status Esomeprazole Magnesium (Nexium) 40 Mg Capsule.dr, 40 Mg Oral Twice A Day Discontinued Levofloxacin (Levaquin) 500 Mg Tablet, 500 Mg Oral Daily Discontinued Metronidazole (Flagyl) 500 Mg Tablet, 500 Mg Oral Twice A Day Discontinued Nitazoxanide (Alinia) 500 Mg Tablet, 500 Mg Oral Every 12 Hours Discontinued Ondansetron (Zofran Odt) 4 Mg Tab.rapdis, 4 Mg Oral Every 6 Hours as needed for Nausea And Vomiting Discontinued Social History Social History Problem Response [...] information available. Plan of Care Discharge Date 08/03/17 1:36pm Disposition HOME, SELF-CARE Condition at Discharge Stable Instructions/Education Provided Headache - Migraine (Adult) Forms Provided Work/School Excuse Prescriptions See Medication Section Referrals DEEPA ARMAS MD Order Date: Call for an appointment Address: [address] [place] [id number] Additional Instructions/Education Take medications as directed: -Fioricet with codeine 50/300/40/30mg one tab by mouth every 6hrs as needed for headache. Follow up with Primary Care Provider. Return to ER as needed. Functional Status No functional status information available. Allergies, Adverse Reactions, Alerts Allergen Type Severity Reaction Status Last Updated venlafaxine HCl Allergy Mild HIVES, SWELLING Active 08/03/17 Latex Allergy Mild SWELLING, REDNESS Active 08/03/17 Immunizations No immunization information available. Vital Signs Acute Vital Signs Vital Response Date/Time Temperature (Fahrenheit) 96.9 degrees F (97.6 - 99.5) 04/07/2017 1:41pm Pulse Pulse Rate (adult) 59 bpm (60 - 90) 04/07/2017 1:41pm Respiratory Rate 18 bpm (12 - 24) 04/07/2017 1:41pm Blood Pressure 110/56 mm Hg 04/07/2017 1:41pm Height 5 ft 6 in 08/03/2017 8:59am Weight 210 lb 08/03/2017 8:59am Body Mass Index 33.9 kg/m^2 08/03/2017 8:59am Results Laboratory Results Test Name Result Units Flags Reference Collection Date/Time Result Date/ Time Comments Prothrombin Time 13.1 seconds 11.9-14.5 04/01/2017 8:44pm [...] seconds 23.8-35.5 04/01/2017 8: 44pm 04/01/2017 10:32pm Magnesium Level 2.1 MG/DL 1.3-2.1 04/01/2017 8:44pm 04/01/2017 10:50pm Creatine Kinase 47 IU/L 29-168 04/01/2017 8:44pm 04/01/2017 10:50pm Creatine Kinase MB 0.60 ng/mL 0.00-5.00 04/01/2017 8:44pm 04/01/2017 11 :01pm Troponin I < 0.001 ng/mL 0-0.300 04/01/2017 8:44pm 04/01/2017 11:01pm Amylase Level 52 U/L 25-125 04/01/2017 8:44pm 04/01/2017 10:50pm Lipase 13 U/L 8-78 04/01/2017 8:44pm 04/01/2017 10:50pm White Blood Count 8.17 x10e3/uL 4.8-10.8 08/03/2017 9:05am 08/03/2017 9 :29am Red Blood Count 4.55 x10e6/uL 3.6-5.1 08/03/2017 9:05am 08/03/2017 9: 29am Hemoglobin 13.7 g/dL 12.0-16.0 08/03/2017 9:0508/03/2017 9:29am Hematocrit 40.3 % 34.2-44.1 08/03/2017 9:0508/03/2017 9:29am Mean Corpuscular Volume 88.6 fL 81-99 08/03/2017 9:0508/03/2017 9: 29am Mean Corpuscular Hemoglobin 30.1 pg 28-32 08/03/2017 9:0508/03/2017 9:29am Mean Corpuscular Hemoglobin Concent 34.0 g/dL 31-35 08/03/2017 9:0508/03/2017 9:29am Red Cell Distribution Width 12.8 % 11.7-14.4 08/03/2017 9:052017 9:29am Platelet Count 289 x10e3/uL 140-360 08/03/2017 9:0508/03/2017 9: 29am Neutrophils (%) (Auto) 69.0 % 38.7-80.0 08/03/2017 9:0508/03/2017 9: 29am Lymphocytes (%) (Auto) 21.1 % 18.0-39.1 08/03/2017 9:0508/03/2017 9: 29am Monocytes (%) (Auto) 6.5 % 4.4-11.3 08/03/2017 9:0508/03/2017 9: 29am Eosinophils (%) (Auto) 2.8 % 0.0-6.0 08/03/2017 9:0508/03/2017 9: 29am Basophils (%) (Auto) 0.4 % 0.0-1.0 08/03/2017 9:08/03/2017 9:29am IM GRANULOCYTES % 0.2 % 0.0-1.0 08/03/2017 9:08/03/2017 9:29am Neutrophils # (Auto) 5.6 2.1-6.9 08/03/2017 9:0508/03/2017 9:29am Lymphocytes # (Auto) 1.7 1.0-3.2 08/03/2017 9:08/03/2017 9:29am Monocytes # (Auto) 0.5 0.2-0.8 08/03/2017 9:08/03/2017 9:29am Eosinophils # (Auto) 0.2 0.0-0.4 08/03/2017 9:08/03/2017 9:29am Basophils # (Auto) 0.0 0.0-0.1 08/03/2017 9:08/03/2017 9:29am Absolute Immature Granulocyte (auto 0.02 x10e3/uL 0-0.1 08/03/2017 9: 08/03/2017 9:29am Urine Color YELLOW YELLOW 08/03/2017 9:08/03/2017 10:10am Urine Clarity CLEAR CLEAR 08/03/2017 9:08/03/2017 10:10am Urine Specific [place] 1.010 1.010-1.025 08/03/2017 9:302017 10:10am Urine pH 7 5 - 7 08/03/2017 9:08/03/2017 10:10am Urine Leukocyte Esterase TRACE H NEGATIVE 08/03/2017 9:2017 10:10am Urine Nitrite NEGATIVE NEGATIVE 08/03/2017 9:3008/03/2017 10:10am Urine Protein NEGATIVE NEGATIVE 08/03/2017 9:3008/03/2017 10:10am Urine Glucose (UA) NEGATIVE NEGATIVE 08/03/2017 9:08/03/2017 10: 10am Urine Ketones NEGATIVE NEGATIVE 08/03/2017 9:3008/03/2017 10:10am Urine Urobilinogen 0.2 mg/dL 0.2 - 1 08/03/2017 9:3008/03/2017 10: 10am Urine Bilirubin NEGATIVE NEGATIVE 08/03/2017 9:3008/03/2017 10: 10am Urine Blood NEGATIVE NEGATIVE 08/03/2017 9:3008/03/2017 10:10am Urine WBC 0-5 /HPF 0-5 08/03/2017 9:3008/03/2017 10:19am Urine RBC NONE /HPF 0-5 08/03/2017 9:3008/03/2017 10:19am Urine Bacteria RARE /HPF NONE 08/03/2017 9:3008/03/2017 10:19am Urine Epithelial Cells MODERATE /LPF NONE 08/03/2017 9:3008/03/2017 10:19am Sodium Level 141 mmol/L 136-145 08/03/2017 9:08/03/2017 9:44am Potassium Level 3.6 mmol/L 3.5-5.1 08/03/2017 9:08/03/2017 9:44am Chloride Level 107 mmol/L 98-107 08/03/2017 9:08/03/2017 9:44am Carbon Dioxide Level 26 mmol/L -08/03/2017 9:08/03/2017 9: 44am Anion Gap 11.6 mmol/L 8-16 08/03/2017 9:08/03/2017 9:44am Blood Urea Nitrogen 15 mg/dL 7-08/03/2017 9:08/03/2017 9:44am Creatinine 0.79 mg/dL 0.57-1.11 08/03/2017 9:08/03/2017 9:44am BUN/Creatinine Ratio 19 6-08/03/2017 9:08/03/2017 9:44am Estimat Glomerular Filtration Rate > 60 ML/MIN 60- 08/03/2017 9: 9:44am Ranges were taken from the National Kidney Disease Education Program and the [employer] literature. Reference ranges: 60 or greater: Normal 16-59 (for 3 consecutive months): Chronic kidney disease 15 or less: Kidney failure Glucose Level 116 mg/dL 74-118 08/03/2017 9:0508/03/2017 9:44am Calcium Level 10.0 mg/dL # 8.4-10.2 08/03/2017 9:0508/03/2017 9:44am Total Bilirubin 0.5 mg/dL 0.2-1.2 08/03/2017 9:0508/03/2017 9:44am Aspartate Amino Transf (AST/SGOT) 28 IU/L 5-34 08/03/2017 9:05am 2017 9:44am Alanine Aminotransferase (ALT/SGPT) 57 IU/L H 0-55 08/03/2017 9:05 9:44am Total Protein 6.9 g/dL 6.5-8.1 08/03/2017 9:0508/03/2017 9:44am Albumin 4.0 g/dL 3.5-5.0 08/03/2017 9:0508/03/2017 9:44am Globulin 2.9 g/dL 2.3-3.5 08/03/2017 9:05am 08/03/2017 9:44am Albumin/Globulin Ratio 1.4 0.8-2.0 08/03/2017 9:05am 08/03/2017 9: 44am Alkaline Phosphatase 60 IU/L 40-150 08/03/2017 9:05am 08/03/2017 9: 44am Procedures Procedure Status Date Provider(s) Computed tomography of abdomen and pelvis with contrast Active 04/01/17 MADDIE BUSH MD Computed tomography of brain without radiopaque contrast Active 08/03/17 VIJAY GENTILE MD Encounters Encounter Location Arrival/Admit Date Discharge/Depart Date Attending Provider Departed Emergency Room [facility] 08/03/17 8:49am 1:36pm VIJAY GENTILE MD Discharged Inpatient [facility] 04/02/17 2:18am 04/07/17 3:45pm DEEPA ARMAS MD
[2017-08-07] MEDS ORDERED: SODIUM CHLORIDE 0.9% 1000ML 1,000 ML IV ONE (22:30)
[2017-08-07] MEDS ORDERED: ONDANSETRON HCL 4 MG ORAL DISINTEGRATING TAB PO ONE (22:30)
[2017-08-07 22:38] LABS: BASOPHILS # (AUTO) 0.1 (0.0-0.1); BASOPHILS % 0.5 % (0.0-1.0); EOSINOPHILS # (AUTO) 0.1 (0.0-0.4); EOSINOPHILS % 1.1 % (0.0-6.0); HEMOGLOBIN 14.2 g/dL (12.0-16.0); LYMPHOCYTES # (AUTO) 1.6 (1.0-3.2); LYMPHOCYTES % 16.8 % (18.0-39.1); MEAN CORPUSCULAR HEMOGLOBIN 30.4 pg (28-32); MEAN CORPUSCULAR HGB CONC 34.6 g/dL (31-35); MEAN CORPUSCULAR VOLUME 87.8 fL (81-99); MONOCYTES # (AUTO) 0.7 (0.2-0.8); MONOCYTES % 7.5 % (4.4-11.3); NEUTROPHILS # (AUTO) 6.8 (2.1-6.9); NEUTROPHILS % 73.8 % (38.7-80.0); PLATELET COUNT 292 x10e3/uL (140-360); RED BLOOD COUNT 4.67 x10e6/uL (3.6-5.1); RED CELL DISTRIBUTION WIDTH 12.6 % (11.7-14.4)
[2017-08-07 22:58] LABS: ALANINE AMINOTRANSFERASE 59 IU/L (0-55); ALBUMIN 4.1 g/dL (3.5-5.0); ALBUMIN/GLOBULIN RATIO 1.4 (0.8-2.0); ALKALINE PHOSPHATASE 50 IU/L (40-150); AMYLASE 55 U/L (25-125); ANION GAP 13.6 mmol/L (8-16); BLOOD UREA NITROGEN 13 mg/dL (7-26); BUN/CREATININE RATIO 16 (6-25); CALCIUM 10.2 mg/dL (8.4-10.2); CARBON DIOXIDE 27 mmol/L (22-29); CHLORIDE 108 mmol/L (98-107); CREATININE, SERUM 0.81 mg/dL (0.57-1.11); EST GLOMERULAR FILTRATION RATE > 60 ML/MIN (60-); GLUCOSE 105 mg/dL (74-118); LIPASE 19 U/L (8-78); POTASSIUM 3.6 mmol/L (3.5-5.1); SODIUM 145 mmol/L (136-145)
[2017-08-08] MEDS ORDERED: PROMETHAZINE HCL (IM) 25 MG/ML VIAL IM ONE (00:15)
[2017-08-08 00:33] LABS: BILIRUBIN,URINE 1+ (NEGATIVE); CLARITY,URINE CLEAR (CLEAR); COLOR,URINE YELLOW (YELLOW); KETONES,URINE 1+ (NEGATIVE); LEUKOCYTE ESTERASE ,URINE NEGATIVE (NEGATIVE); NITRITE,URINE NEGATIVE (NEGATIVE); PROTEIN,URINE DIPSTICK NEGATIVE (NEGATIVE); URINE UROBILINOGEN 0.2 mg/dL (0.2 - 1)
[2017-08-08 00:34] LABS: WBC,URINE (MAN) 0-5 /HPF (0-5)
[2017-08-08 00:35] LABS: BACTERIA,URINE RARE /HPF; EPITHELIAL CELLS,URINE FEW /LPF
--- NOTE | 2017-08-08 01:32 | Diagnostic Imaging Report ---
EXAM: ABDOMEN ACUTE SERIES W/PA CXR DATE: 08/08/2017 12:07 AM Time stamp on exam: 0023 hours INDICATION: Vomiting COMPARISON: None FINDINGS: LINES/TUBES: None BOWEL PATTERN: No evidence for obstruction. SOFT TISSUES: No abnormal calcifications. No mass effect. LUNGS: Suboptimal inspiratory effort. No pleural effusion, pneumonia, edema, pneumothorax or cardiomegaly. BONES: No acute findings. IMPRESSION: Unremarkable chest x-ray and no evidence of obstructive bowel gas pattern. Signed by: Dr. Vu Edwards M.D. on 08/08/2017 1:28 AM
== END 2017-08-08 02:15 | disposition home or self-care (01) ==
LOC: ER 22:01
DX: K11.22 Acute recurrent sialoadenitis (principal); G50.0 Trigeminal neuralgia; R11.2 Nausea with vomiting, unspecified; I10 Essential (primary) hypertension; K21.9 Gastro-esophageal reflux disease without esophagitis; M79.7 Fibromyalgia; K57.92 Diverticulitis of intestine, part unspecified, without perforation or abscess without bleeding
CPT/HCPCS: 36415; 74022; 80053; 81001; 82150; 83690; 85025; 99284; J2550; J7030

== ENCOUNTER 2018-04-21 15:46 | Emergency (ER) | payer OTHER ==
[~2018-04-21] VITALS: Ht 167.6 cm; Wt 96.6 kg
[2018-04-21] MEDS ORDERED: PROMETHAZINE HCL (IM) 25 MG/ML VIAL IV STA (15:59)
[2018-04-21] MEDS ORDERED: SODIUM CHLORIDE 0.9% 1000ML 1,000 ML IV STA (15:59)
--- NOTE | 2018-04-21 19:15 | NUR ---
ENDORSED TO NIGHT VANE ALLEN
[2018-04-21 19:16] LABS: BASOPHILS % 0.2 % (0.0-1.0); EOSINOPHILS # (AUTO) 0.1 (0.0-0.4); EOSINOPHILS % 1.4 % (0.0-6.0); HEMATOCRIT 45.1 % (34.2-44.1); HEMOGLOBIN 15.1 g/dL (12.0-16.0); LYMPHOCYTES # (AUTO) 0.4 (1.0-3.2); LYMPHOCYTES % 3.9 % (18.0-39.1); MEAN CORPUSCULAR HEMOGLOBIN 29.2 pg (28-32); MEAN CORPUSCULAR HGB CONC 33.5 g/dL (31-35); MEAN CORPUSCULAR VOLUME 87.2 fL (81-99); MONOCYTES # (AUTO) 0.7 (0.2-0.8); MONOCYTES % 6.7 % (4.4-11.3); NEUTROPHILS # (AUTO) 8.7 (2.1-6.9); NEUTROPHILS % 87.6 % (38.7-80.0); PLATELET COUNT 235 x10e3/uL (140-360); RED BLOOD COUNT 5.17 x10e6/uL (3.6-5.1); RED CELL DISTRIBUTION WIDTH 13.4 % (11.7-14.4)
[2018-04-21 19:40] LABS: ALBUMIN 4.1 g/dL (3.5-5.0); ALBUMIN/GLOBULIN RATIO 1.4 (0.8-2.0); ANION GAP 17.8 mmol/L (8-16); CALCIUM 9.6 mg/dL (8.4-10.2); CREATININE, SERUM 0.99 mg/dL (0.57-1.11); MAGNESIUM 1.9 MG/DL (1.3-2.1); POTASSIUM 3.8 mmol/L (3.5-5.1)
[2018-04-21 20:09] LABS: EOSINOPHILS % (MANUAL) 1 % (0-7); LYMPHOCYTES % (MANUAL) 5 % (19-48); MONOCYTES % (MANUAL) 7 % (3.4-9.0); NEUTROPHILS % (MANUAL) 87 % (40-74); PLATELET ESTIMATE ADEQUATE; PLATELET MORPHOLOGY COMMENT NORMAL; RBC MORPHOLOGY COMMENT NORMAL
[2018-04-21] MEDS ORDERED: SODIUM CHLORIDE 0.9% 1000ML 1,000 ML IV SCH (20:15)
[2018-04-21] MEDS ORDERED: HYOSCYAMINE SULFATE 0.5 MG/ML INJ IV ONE (20:15)
[2018-04-21 20:49] LABS: CLARITY,URINE HAZY (CLEAR); COLOR,URINE YELLOW (YELLOW)
[2018-04-21 20:50] LABS: BILIRUBIN,URINE NEGATIVE (NEGATIVE); KETONES,URINE NEGATIVE (NEGATIVE); LEUKOCYTE ESTERASE ,URINE NEGATIVE (NEGATIVE); NITRITE,URINE NEGATIVE (NEGATIVE); PROTEIN,URINE DIPSTICK NEGATIVE (NEGATIVE); URINE UROBILINOGEN 0.2 mg/dL (0.2 - 1)
[2018-04-21 20:53] LABS: AMORPHOUS SEDIMENT,URINE MODERATE (FEW); BACTERIA,URINE FEW /HPF; EPITHELIAL CELLS,URINE FEW /LPF; RBC,URINE 0-5 /HPF (0-5); WBC,URINE (MAN) 0-5 /HPF (0-5)
== END 2018-04-21 23:02 | disposition home or self-care (01) ==
LOC: ER 15:50
DX: R10.84 Generalized abdominal pain (principal); R11.2 Nausea with vomiting, unspecified; R19.7 Diarrhea, unspecified; I10 Essential (primary) hypertension; K21.9 Gastro-esophageal reflux disease without esophagitis; F41.9 Anxiety disorder, unspecified; M79.7 Fibromyalgia
CPT/HCPCS: 36415; 80053; 81001; 82150; 82270; 83690; 83735; 85025; 87045; 96374; 96375; 99284; J1980; J2550; J7030

== ENCOUNTER 2024-01-15 20:14 | Inpatient (IN) | payer OTHER ==
[~2024-01-15] VITALS: Ht 167.6 cm; Wt 88.5 kg
[2024-01-15] MEDS: ONDANSETRON HCL INJ 2MG/ML 2ML 2 MG/ML VIAL IV STA (21:23)
[2024-01-15] MEDS: SODIUM CHLORIDE 0.9% 1000ML 1,000 ML IV ONE (21:24)
[2024-01-15] MEDS: Morphine 4mg INJECTION 4 MG/ML INJ IV ONE (21:24)
[2024-01-15 21:50] LABS: BASOPHILS # (AUTO) 0.1 (0.0-0.1); BASOPHILS % 0.3 % (0.0-1.0); EOSINOPHILS # (AUTO) 0.2 (0.0-0.4); EOSINOPHILS % 1.4 % (0.0-6.0); HEMATOCRIT 44.4 % (34.2-44.1); HEMOGLOBIN 14.3 g/dL (12.0-16.0); LYMPHOCYTES # (AUTO) 0.9 (1.0-3.2); LYMPHOCYTES % 6.3 % (18.0-39.1); MEAN CORPUSCULAR HEMOGLOBIN 29.1 pg (28-32); MEAN CORPUSCULAR HGB CONC 32.2 g/dL (31-35); MEAN CORPUSCULAR VOLUME 90.4 fL (81-99); MONOCYTES # (AUTO) 1.4 (0.2-0.8); MONOCYTES % 9.2 % (4.4-11.3); NEUTROPHILS # (AUTO) 12.1 (2.1-6.9); NEUTROPHILS % 82.3 % (38.7-80.0); PLATELET COUNT 272 x10e3/uL (140-360); RED BLOOD COUNT 4.91 x10e6/uL (3.6-5.1); RED CELL DISTRIBUTION WIDTH 13.5 % (11.7-14.4); WHITE BLOOD COUNT 14.66 x10e3/uL (4.8-10.8)
[2024-01-15 22:04] LABS: ALBUMIN 4.2 g/dL (3.5-5.0); ALBUMIN/GLOBULIN RATIO 1.4 (0.8-2.0); ANION GAP 14.2 mmol/L (8-16); BILIRUBIN,TOTAL 0.5 mg/dL (0.2-1.2); CALCIUM 9.9 mg/dL (8.4-10.2); CREATININE, SERUM 0.97 mg/dL (0.57-1.11); POTASSIUM 4.2 mmol/L (3.5-5.1); TOTAL PROTEIN 7.3 g/dL (6.5-8.1)
[2024-01-15] MEDS ORDERED: IOPAMIDOL 370 MG/ML 100 ML INFUS..BTL INJ ONE (22:24)
[2024-01-15] MEDS ORDERED: DICYCLOMINE HCL 20 MG/2 ML VIAL IM ONE (22:27)
[2024-01-15] MEDS: DICYCLOMINE HCL 20 MG/2 ML VIAL IM ONE (22:47)
[2024-01-15 23:30] LABS: BILIRUBIN,URINE NEGATIVE (NEGATIVE); CLARITY,URINE CLEAR (CLEAR); COLOR,URINE YELLOW (YELLOW); GLUCOSE, URINE NEGATIVE (NEGATIVE); KETONES,URINE 1+ (NEGATIVE); LEUKOCYTE ESTERASE ,URINE SMALL (NEGATIVE); NITRITE,URINE NEGATIVE (NEGATIVE); PH,URINE 7 (5 - 7); PROTEIN,URINE DIPSTICK NEGATIVE (NEGATIVE); URINE UROBILINOGEN 0.2 mg/dL (0.2 - 1)
[2024-01-16 00:05] LABS: BACTERIA,URINE MODERATE /HPF; EPITHELIAL CELLS,URINE MODERATE /LPF; RBC,URINE 0-5 /HPF (0-5)
[2024-01-16] MEDS: SODIUM CHLORIDE 0.9% 1000ML 1,000 ML IV SCH (01:03)
[2024-01-16] MEDS: KETOROLAC TROMETHAMINE 30 MG/ML VIAL IV PRN (01:04)
[2024-01-16] MEDS: Morphine 4mg INJECTION 4 MG/ML INJ IV PRN (03:35)
[2024-01-16] MEDS: ONDANSETRON HCL INJ 2MG/ML 2ML 2 MG/ML VIAL IV PRN (03:35)
[2024-01-16] MEDS: PANTOPRAZOLE SOD 40 MG TABEC PO SCH (08:41)
[2024-01-16] MEDS ORDERED: DOXEPIN HCL25 MG PO (08:56)
[2024-01-16] MEDS ORDERED: ALIGN4 MG PO (08:57)
[2024-01-16] MEDS: ATENOLOL 50 MG TAB PO SCH (09:08)
[2024-01-16 10:32] VITALS: PULSE 58; RESP 18; TEMP 98.2
[2024-01-16 11:11] VITALS: BP 105/47; PULSE 56; RESP 19; TEMP 97.6; O2SAT 99
[2024-01-16 11:38] VITALS: BP 105/47; PULSE 56; RESP 19; TEMP 97.6; O2SAT 99
[2024-01-16 15:49] VITALS: BP 104/61; PULSE 62; RESP 19; TEMP 97.9; O2SAT 97
[2024-01-16] MEDS: GABAPENTIN 400 MG CAP PO SCH (17:11)
[2024-01-16 20:00] VITALS: BP 110/54; PULSE 56; RESP 18; TEMP 98.3; O2SAT 100
[2024-01-16 21:40] VITALS: BP 110/54; PULSE 56; RESP 18; TEMP 98.5; O2SAT 100
[2024-01-17] VITALS (8 sets, daily range): BP systolic 99–120; BP diastolic 46–72; PULSE 51–69; RESP 18–20; TEMP 97.8–98.6; O2SAT 98–100
[2024-01-17 05:40] LABS: BASOPHILS % 0.4 % (0.0-1.0); EOSINOPHILS # (AUTO) 0.3 (0.0-0.4); EOSINOPHILS % 2.8 % (0.0-6.0); HEMATOCRIT 37.9 % (34.2-44.1); HEMOGLOBIN 12.3 g/dL (12.0-16.0); LYMPHOCYTES % 10.6 % (18.0-39.1); MEAN CORPUSCULAR HEMOGLOBIN 28.9 pg (28-32); MEAN CORPUSCULAR HGB CONC 32.5 g/dL (31-35); MEAN CORPUSCULAR VOLUME 89.2 fL (81-99); MONOCYTES # (AUTO) 1.1 (0.2-0.8); MONOCYTES % 11.1 % (4.4-11.3); NEUTROPHILS # (AUTO) 7.3 (2.1-6.9); NEUTROPHILS % 74.7 % (38.7-80.0); PLATELET COUNT 242 x10e3/uL (140-360); RED BLOOD COUNT 4.25 x10e6/uL (3.6-5.1); RED CELL DISTRIBUTION WIDTH 13.6 % (11.7-14.4); WHITE BLOOD COUNT 9.78 x10e3/uL (4.8-10.8)
[2024-01-17 06:06] LABS: ALBUMIN 3.2 g/dL (3.5-5.0); ALBUMIN/GLOBULIN RATIO 1.2 (0.8-2.0); ANION GAP 11.8 mmol/L (8-16); BILIRUBIN,TOTAL 0.7 mg/dL (0.2-1.2); CALCIUM 8.8 mg/dL (8.4-10.2); CREATININE, SERUM 0.85 mg/dL (0.57-1.11); POTASSIUM 3.8 mmol/L (3.5-5.1); TOTAL PROTEIN 5.8 g/dL (6.5-8.1)
[2024-01-18] VITALS (8 sets, daily range): BP systolic 105–125; BP diastolic 49–73; PULSE 50–64; RESP 18–19; TEMP 97.3–98.3; O2SAT 98–100
[2024-01-18] MEDS: SODIUM CHLORIDE 0.9% 1000ML 1,000 ML IV SCH (03:09)
[2024-01-18 05:10] LABS: BASOPHILS % 0.6 % (0.0-1.0); EOSINOPHILS # (AUTO) 0.3 (0.0-0.4); EOSINOPHILS % 4.6 % (0.0-6.0); HEMATOCRIT 37.7 % (34.2-44.1); HEMOGLOBIN 12.2 g/dL (12.0-16.0); LYMPHOCYTES % 15.5 % (18.0-39.1); MEAN CORPUSCULAR HEMOGLOBIN 28.9 pg (28-32); MEAN CORPUSCULAR HGB CONC 32.4 g/dL (31-35); MEAN CORPUSCULAR VOLUME 89.3 fL (81-99); MONOCYTES # (AUTO) 0.8 (0.2-0.8); MONOCYTES % 11.3 % (4.4-11.3); NEUTROPHILS # (AUTO) 4.6 (2.1-6.9); NEUTROPHILS % 67.7 % (38.7-80.0); PLATELET COUNT 229 x10e3/uL (140-360); RED BLOOD COUNT 4.22 x10e6/uL (3.6-5.1); RED CELL DISTRIBUTION WIDTH 13.5 % (11.7-14.4); WHITE BLOOD COUNT 6.73 x10e3/uL (4.8-10.8)
[2024-01-18 05:15] LABS: ALBUMIN 3.1 g/dL (3.5-5.0); ALBUMIN/GLOBULIN RATIO 1.1 (0.8-2.0); ANION GAP 10.5 mmol/L (8-16); BILIRUBIN,TOTAL 0.3 mg/dL (0.2-1.2); CALCIUM 8.9 mg/dL (8.4-10.2); CREATININE, SERUM 0.77 mg/dL (0.57-1.11); POTASSIUM 3.5 mmol/L (3.5-5.1); TOTAL PROTEIN 5.9 g/dL (6.5-8.1)
[2024-01-19] VITALS (8 sets, daily range): BP systolic 117–178; BP diastolic 68–79; PULSE 52–69; RESP 17–20; TEMP 97.7–98.3; O2SAT 97–100
[2024-01-19 06:15] LABS: LD1 ISOENZYMES 9 % (17-32); LD2 ISOENZYMES 16 % (25-40); LD3 ISOENZYMES 14 % (17-27); LD4 ISOENZYMES 12 % (5-13)
[2024-01-19 08:58] LABS: BASOPHILS # (AUTO) 0.1 (0.0-0.1); BASOPHILS % 0.8 % (0.0-1.0); EOSINOPHILS # (AUTO) 0.4 (0.0-0.4); EOSINOPHILS % 5.8 % (0.0-6.0); HEMATOCRIT 37.3 % (34.2-44.1); HEMOGLOBIN 12.3 g/dL (12.0-16.0); LYMPHOCYTES % 15.5 % (18.0-39.1); MEAN CORPUSCULAR HEMOGLOBIN 28.7 pg (28-32); MEAN CORPUSCULAR VOLUME 87.1 fL (81-99); MONOCYTES # (AUTO) 0.6 (0.2-0.8); MONOCYTES % 8.9 % (4.4-11.3); NEUTROPHILS # (AUTO) 4.3 (2.1-6.9); NEUTROPHILS % 68.7 % (38.7-80.0); PLATELET COUNT 262 x10e3/uL (140-360); RED BLOOD COUNT 4.28 x10e6/uL (3.6-5.1); RED CELL DISTRIBUTION WIDTH 13.2 % (11.7-14.4); WHITE BLOOD COUNT 6.21 x10e3/uL (4.8-10.8)
[2024-01-19 09:17] LABS: ALANINE AMINOTRANSFERASE 100 IU/L (0-55); ALBUMIN 3.3 g/dL (3.5-5.0); ALBUMIN/GLOBULIN RATIO 1.2 (0.8-2.0); ALKALINE PHOSPHATASE 112 IU/L (40-150); ANION GAP 11.4 mmol/L (8-16); BILIRUBIN,TOTAL 0.4 mg/dL (0.2-1.2); BLOOD UREA NITROGEN < 5 mg/dL (7-26); CALCIUM 9.2 mg/dL (8.4-10.2); CARBON DIOXIDE 23 mmol/L (22-29); CHLORIDE 111 mmol/L (98-107); EST GLOMERULAR FILTRATION RATE 85 ML/MIN (>=60); GLUCOSE 90 mg/dL (74-118); SODIUM 142 mmol/L (136-145); TOTAL PROTEIN 6.1 g/dL (6.5-8.1)
[2024-01-19 09:24] LABS: BUN/CREATININE RATIO 6 (6-25); POTASSIUM 3.4 mmol/L (3.5-5.1)
[2024-01-19 09:46] LABS: LD5 ISOENZYMES 49 % (4-20)
[2024-01-19] MEDS ORDERED: IOPAMIDOL 610MG/1ML 300 MG/ML VIAL IV ONE (14:16)
[2024-01-19] MEDS ORDERED: MIDAZOLAM HCL 2 MG/2 ML VIAL ONE (15:25)
[2024-01-19] MEDS ORDERED: DEXAMETHASONE SOD PHOS INJ 4 MG/ML SDV ONE (15:34)
[2024-01-19] MEDS ORDERED: ONDANSETRON HCL INJ 2MG/ML 2ML 2 MG/ML VIAL ONE (15:47)
[2024-01-19] MEDS: FENTANYL CITRATE/PF 100MCG/2 ML INJ ONE (16:10)
[2024-01-19] MEDS: PHENAZOPYRIDINE HCL 100 MG TAB PO PRN (22:01)
[2024-01-19] MEDS: SOLIFENACIN SUCCINATE 5 MG TAB PO ONE (22:05)
[2024-01-20] VITALS (7 sets, daily range): BP systolic 114–147; BP diastolic 55–68; PULSE 50–59; RESP 17–20; TEMP 97.9–98.4; O2SAT 97–100
[2024-01-20] MEDS ORDERED: FENTANYL CITRATE/PF 100MCG/2 ML INJ ONE (06:50)
[2024-01-20] MEDS ORDERED: ROCURONIUM BROMIDE 1 ML IV ONE (06:50)
[2024-01-20] MEDS ORDERED: PROPOFOL IV EMULSION 10 MG/ML 20 ML VIAL ONE (06:50)
[2024-01-20] MEDS ORDERED: LIDOCAINE HCL 2% LOCAL INJ 5 ML SDV VIAL INJ ONE (06:50)
[2024-01-20] MEDS: SOLIFENACIN SUCCINATE 5 MG TAB PO SCH (08:22)
[2024-01-21] VITALS (8 sets, daily range): BP systolic 109–139; BP diastolic 54–80; PULSE 48–60; RESP 17–20; TEMP 97.5–98.4; O2SAT 98–100
[2024-01-21 07:16] LABS: CALCIUM 9.3 mg/dL (8.4-10.2); CREATININE, SERUM 1.07 mg/dL (0.57-1.11)
[2024-01-22 04:59] VITALS: BP 135/65; PULSE 54; RESP 20; TEMP 98.7; O2SAT 98
[2024-01-22 05:24] LABS: BASOPHILS # (AUTO) 0.1 (0.0-0.1); BASOPHILS % 0.6 % (0.0-1.0); EOSINOPHILS # (AUTO) 0.3 (0.0-0.4); EOSINOPHILS % 3.8 % (0.0-6.0); HEMATOCRIT 40.4 % (34.2-44.1); HEMOGLOBIN 13.1 g/dL (12.0-16.0); LYMPHOCYTES # (AUTO) 1.3 (1.0-3.2); LYMPHOCYTES % 14.5 % (18.0-39.1); MEAN CORPUSCULAR HEMOGLOBIN 28.5 pg (28-32); MEAN CORPUSCULAR HGB CONC 32.4 g/dL (31-35); MONOCYTES # (AUTO) 0.8 (0.2-0.8); MONOCYTES % 9.1 % (4.4-11.3); NEUTROPHILS # (AUTO) 6.2 (2.1-6.9); NEUTROPHILS % 71.5 % (38.7-80.0); PLATELET COUNT 304 x10e3/uL (140-360); RED BLOOD COUNT 4.59 x10e6/uL (3.6-5.1); RED CELL DISTRIBUTION WIDTH 13.4 % (11.7-14.4); WHITE BLOOD COUNT 8.66 x10e3/uL (4.8-10.8)
[2024-01-22 05:48] LABS: ANION GAP 14.6 mmol/L (8-16); CALCIUM 9.7 mg/dL (8.4-10.2); CREATININE, SERUM 0.82 mg/dL (0.57-1.11); POTASSIUM 3.6 mmol/L (3.5-5.1)
[2024-01-22] MEDS ORDERED: ACETAMINOPHEN 325 MG TAB PO PRN (07:00)
[2024-01-22 07:30] VITALS: BP 140/71; PULSE 49; RESP 18; TEMP 98.3; O2SAT 97
[2024-01-22 09:42] VITALS: BP 140/71; PULSE 49; RESP 18; TEMP 98.3; O2SAT 97
[2024-01-22 11:30] VITALS: BP 143/76; PULSE 73; RESP 20; TEMP 98.3; O2SAT 98
== END 2024-01-22 11:25 | disposition home or self-care (01) | DRG 854 ==
LOC: ER 21:02 → ERHOLD 01-16 00:20 → MED/SURG 01-16 10:26 → OBSVTOIN 01-17 11:20
PROVIDERS: ADMIT Internal Medicine; ATTEND Internal Medicine
PROC: 3E0333Z Introduction of Anti-inflammatory into Peripheral Vein, Percutaneous Approach (ICD-10-PCS; principal; 2024-01-17)
PROC: 0T768DZ Dilation of Right Ureter with Intraluminal Device, Via Natural or Artificial Opening Endoscopic (ICD-10-PCS; 2024-01-19)
PROC: 0T788DZ Dilation of Bilateral Ureters with Intraluminal Device, Via Natural or Artificial Opening Endoscopic (ICD-10-PCS; 2024-01-19)
PROC: BT161ZZ Fluoroscopy of Right Ureter using Low Osmolar Contrast (ICD-10-PCS; 2024-01-19)
PROC: BT161ZZ Fluoroscopy of Right Ureter using Low Osmolar Contrast (ICD-10-PCS; 2024-01-19)
PROC: BT171ZZ Fluoroscopy of Left Ureter using Low Osmolar Contrast (ICD-10-PCS; 2024-01-19)
PROC: 0UJH7ZZ Inspection of Vagina and Cul-de-sac, Via Natural or Artificial Opening (ICD-10-PCS; 2024-01-19)
DX: A41.9 Sepsis, unspecified organism (principal); K57.32 Diverticulitis of large intestine without perforation or abscess without bleeding; N13.6 Pyonephrosis; R59.0 Localized enlarged lymph nodes; I10 Essential (primary) hypertension; K21.00 Gastro-esophageal reflux disease with esophagitis, without bleeding; F41.9 Anxiety disorder, unspecified; M79.7 Fibromyalgia; R31.9 Hematuria, unspecified; R79.89 Other specified abnormal findings of blood chemistry; K59.00 Constipation, unspecified; Q62.5 Duplication of ureter; E66.9 Obesity, unspecified; Z68.31 Body mass index [BMI] 31.0-31.9, adult; Z90.710 Acquired absence of both cervix and uterus; Z91.040 Latex allergy status; Z88.8 Allergy status to other drugs, medicaments and biological substances; Z82.49 Family history of ischemic heart disease and other diseases of the circulatory system; N81.10 Cystocele, unspecified; N81.6 Rectocele; N95.2 Postmenopausal atrophic vaginitis
CPT/HCPCS: 36415; 74177; 74420; 80048; 80053; 81001; 83615; 83625; 83690; 83735; 85025; 87086; 88184; 96361; 99284; C1758; C2617; G0378; J1100; J1885; J2003; J2250; J2270; J2405; J2543; J7030; Q9967

== ENCOUNTER → 2024-03-20 | Outpatient (REF) | payer OTHER ==
[~2024-03-20] MED LIST changes: +ALIGN4 MG PO; +DOXEPIN HCL25 MG PO
== END ==
LOC: US 12:30
PROVIDERS: ATTEND Internal Medicine Hematology & Oncology
DX: R59.1 Generalized enlarged lymph nodes (principal)
CPT/HCPCS: 38505; 76942; 88305

== ENCOUNTER → 2024-04-24 | Day surgery (SDC) | payer OTHER ==
[2024-04-23 12:33] LABS: BASOPHILS % 0.6 % (0.0-1.0); EOSINOPHILS # (AUTO) 0.4 (0.0-0.4); EOSINOPHILS % 5.9 % (0.0-6.0); HEMOGLOBIN 12.6 g/dL (12.0-16.0); LYMPHOCYTES # (AUTO) 1.1 (1.0-3.2); LYMPHOCYTES % 16.3 % (18.0-39.1); MEAN CORPUSCULAR HEMOGLOBIN 27.9 pg (28-32); MEAN CORPUSCULAR HGB CONC 32.3 g/dL (31-35); MEAN CORPUSCULAR VOLUME 86.5 fL (81-99); MONOCYTES # (AUTO) 0.8 (0.2-0.8); MONOCYTES % 11.4 % (4.4-11.3); NEUTROPHILS # (AUTO) 4.6 (2.1-6.9); NEUTROPHILS % 65.7 % (38.7-80.0); PLATELET COUNT 277 x10e3/uL (140-360); RED BLOOD COUNT 4.51 x10e6/uL (3.6-5.1); RED CELL DISTRIBUTION WIDTH 13.3 % (11.7-14.4); WHITE BLOOD COUNT 6.93 x10e3/uL (4.8-10.8)
[2024-04-23 13:11] LABS: ANION GAP 13.2 mmol/L (8-16); CALCIUM 9.6 mg/dL (8.4-10.2); CREATININE, SERUM 0.92 mg/dL (0.57-1.11); POTASSIUM 4.2 mmol/L (3.5-5.1)
[~2024-04-24] MED LIST changes: +ACETAMINOPHEN 1000 MG/100 ML 100 ML IV ONE; +DEXAMETHASONE SOD PHOS INJ 4 MG/ML SDV ONE; +FAMOTIDINE 20 MG/2 ML VIAL IV ONE; +FENTANYL CITRATE/PF 100MCG/2 ML INJ ONE; +LIDOCAINE HCL 2% LOCAL INJ 5 ML SDV VIAL INJ ONE; +MIDAZOLAM HCL 2 MG/2 ML VIAL ONE; +ONDANSETRON HCL INJ 2MG/ML 2ML 2 MG/ML VIAL ONE; +PRESERVISION A1 EAC2 PO; +PROPOFOL IV EMULSION 10 MG/ML 20 ML VIAL ONE; +SEVOFLURANE INHAL SOLN 250 ML PEN BTL ONE
[2024-04-24] MEDS: MEROPENEM 1 GM VIAL ONE (06:32)
[2024-04-24] MEDS: GENTAMICIN 80MG/NS 100 ML 200 ML IV ONE (06:33)
[2024-04-24] MEDS: LACTATED RINGER'S 1,000 ML ONE (06:33)
[2024-04-24 09:55] VITALS: TEMP 97.2
[2024-04-24] MEDS: PHENAZOPYRIDINE HCL 100 MG TAB ONE (10:16)
[2024-04-24 10:55] VITALS: BP 129/79; PULSE 60; RESP 14; O2SAT 99
== END | disposition home or self-care (01) ==
LOC: OR 05:39
PROVIDERS: ATTEND Urology
DX: N13.30 Unspecified hydronephrosis (principal); Q62.5 Duplication of ureter; Z46.6 Encounter for fitting and adjustment of urinary device; N81.10 Cystocele, unspecified; N81.6 Rectocele; N95.2 Postmenopausal atrophic vaginitis; C85.90 Non-Hodgkin lymphoma, unspecified, unspecified site; I10 Essential (primary) hypertension; K21.9 Gastro-esophageal reflux disease without esophagitis; K44.9 Diaphragmatic hernia without obstruction or gangrene; K57.90 Diverticulosis of intestine, part unspecified, without perforation or abscess without bleeding; F41.9 Anxiety disorder, unspecified; Z88.8 Allergy status to other drugs, medicaments and biological substances; Z91.040 Latex allergy status; Z79.899 Other long term (current) drug therapy; Z87.440 Personal history of urinary (tract) infections
CPT/HCPCS: 36415; 71046; 74420; 80048; 85025; 87086; 93005; C1769; J1100; J1580; J2003; J2185; J2250; J2405

== ENCOUNTER → 2024-08-28 | Outpatient (REF) | payer OTHER ==
[~2024-08-28] MED LIST changes: -ACETAMINOPHEN 1000 MG/100 ML 100 ML IV ONE; -DEXAMETHASONE SOD PHOS INJ 4 MG/ML SDV ONE; -FAMOTIDINE 20 MG/2 ML VIAL IV ONE; -FENTANYL CITRATE/PF 100MCG/2 ML INJ ONE; -LIDOCAINE HCL 2% LOCAL INJ 5 ML SDV VIAL INJ ONE; -MIDAZOLAM HCL 2 MG/2 ML VIAL ONE; -ONDANSETRON HCL INJ 2MG/ML 2ML 2 MG/ML VIAL ONE; -PROPOFOL IV EMULSION 10 MG/ML 20 ML VIAL ONE; -SEVOFLURANE INHAL SOLN 250 ML PEN BTL ONE
== END ==
LOC: US 12:40
PROVIDERS: ATTEND Urology
DX: N13.30 Unspecified hydronephrosis (principal)
CPT/HCPCS: 76770; 76857